=== PATIENT | female | born 2000 | race Caucasian/White ===

== ENCOUNTER 2020-07-08 21:31 | Emergency (ER) | payer OTHER ==
[~2020-07-08] VITALS: Ht 165.1 cm; Wt 61.4 kg
[2020-07-08 21:40] VITALS: BP 143/100; TEMP 98.1
[2020-07-08 22:35] VITALS: PULSE 60
== END 2020-07-08 22:35 | disposition home or self-care (01) ==
LOC: COL.ER 21:31
DX: S80.01XA Contusion of right knee, initial encounter (principal); R60.0 Localized edema; Z88.0 Allergy status to penicillin; Z88.2 Allergy status to sulfonamides; X50.9XXA Other and unspecified overexertion or strenuous movements or postures, initial encounter; Y93.41 Activity, dancing